=== PATIENT | male | born 1965 | race Hispanic/Latino ===

== ENCOUNTER → 2022-02-05 | Outpatient (CLI) | payer OTHER | LOC: RAH 13:57 | PROVIDERS: ATTEND Family Medicine | DX: Z13.6 Encounter for screening for cardiovascular disorders (principal) | CPT/HCPCS: 75571 ==

== ENCOUNTER 2023-07-18 00:17 | Emergency (ER) | payer BC, OTHER ==
[~2023-07-18] VITALS: Ht 167.6 cm; Wt 75.3 kg
[2023-07-18 00:19] VITALS: BP 135/83
[2023-07-18 01:15] VITALS: PULSE 81; RESP 16; O2SAT 98
[2023-07-18] MEDS ORDERED: HYDROXYZINE 25 MG TABLET PO ONE (01:30)
[2023-07-18] MEDS ORDERED: HYDR50CA50 PO (01:43)
== END 2023-07-18 02:02 | disposition home or self-care (01) ==
LOC: EDH 00:17
DX: F41.9 Anxiety disorder, unspecified (principal); E78.00 Pure hypercholesterolemia, unspecified; I10 Essential (primary) hypertension; Z88.6 Allergy status to analgesic agent
CPT/HCPCS: 93005